=== PATIENT | female | born 1965 | race Caucasian/White ===

== ENCOUNTER 2023-11-21 04:06 | Day surgery (SDC) | payer BC ==
[2023-11-15 10:27] VITALS: BMI 28.1
[2023-11-21] MEDS ORDERED: MIDAZOLAM HCL 2 MG/2 ML SINGLE DOSE VIAL ONE (09:07)
[2023-11-21] MEDS ORDERED: PROPOFOL 40 ML ONE (09:10)
[2023-11-21] MEDS ORDERED: SUCCINYLCHOLINE CHLORIDE 200 MG/10 ML SYRINGE ONE (09:11)
[2023-11-21] MEDS: LACTATED RINGERS SOLUTION 1,000 ML IV SCH (10:10)
[2023-11-21] MEDS: ACETAMINOPHEN 1000 MG/100 ML BAG IVPB ONE (10:11)
[2023-11-21] MEDS ORDERED: ACETAMINOPHEN INJECTION 100 ML IVPB ONE (10:11)
[2023-11-21] MEDS ORDERED: oxyCODONE HCL 5 MG TABLET PO PRN (10:31)
[2023-11-21] MEDS ORDERED: ONDANSETRON 4 MG/2 ML VIAL IVPUSH PRN (10:31)
[2023-11-21] MEDS ORDERED: IBUPROFEN 400 MG TABLET (FP) PO PRN (10:59)
[2023-11-21] MEDS ORDERED: ACETAMINOPHEN 325 MG TABLET (FP) PO PRN (10:59)
[2023-11-21 12:22] VITALS: RESP 20
[2023-11-21 12:25] VITALS: BP 125/85; PULSE 78; TEMP 97.8
== END 2023-11-21 11:59 | disposition home or self-care (01) ==
LOC: JASU-SURG 04:06
PROVIDERS: ATTEND Specialist
PROC: 0UDB8ZZ Extraction of Endometrium, Via Natural or Artificial Opening Endoscopic (ICD-10-PCS; principal; 2023-11-21 09:00)
DX: N95.0 Postmenopausal bleeding (principal); D25.0 Submucous leiomyoma of uterus
CPT/HCPCS: 94760; J0131